=== PATIENT | male | born 1940 | race Caucasian/White ===

== ENCOUNTER 2024-05-05 15:23 | Inpatient (IN) | payer OTHER ==
[~2024-05-05] VITALS: Ht 165.1 cm; Wt 90.3 kg
[2024-05-05 15:30] VITALS: BP_SYST 117; PULSE 87; RESP 18; TEMP 100.3; O2SAT 98
[2024-05-05 16:30] LABS: BILIRUBIN,URINE NEGATIVE (NEGATIVE); CLARITY/URINE CLEAR (CLEAR); COLOR,URINE YELLOW (YELLOW); GLUCOSE,URINE NEGATIVE (NEGATIVE); KETONES,URINE NEGATIVE (NEGATIVE); LEUKOCYTE ESTERASE ,URINE 1+ (NEGATIVE); NITRITE, URINE NEGATIVE (NEGATIVE); PROTEIN URINE NEGATIVE (NEGATIVE); UROBILINOGEN,URINE 0.2 (0.2-1.0)
[2024-05-05 16:39] LABS: BLOOD, URINE TRACE (NEGATIVE)
[2024-05-05] MEDS: NACL 0.9% 1,000 ML IV ONE (16:49)
[2024-05-05 16:57] LABS: BACTERIA,URINE MANY /HPF (None Seen); RBC,URINE 0-3 /HPF (0-3)
[2024-05-05] MEDS: ACETAMINOPHEN 500 MG TABLET PO ONE (17:01)
[2024-05-05] MEDS: ACETAMINOPHEN 650 MG SUPP.RECT RC ONE (17:04)
[2024-05-05 17:05] LABS: ALANINE AMINOTRANSFERASE 15 U/L (12-78); ALBUMIN 3.1 g/dL (3.4-4.8); ANION GAP 8 (5-15); ASPARTATE AMINOTRANSFERASE 19 U/L (10-37); CARBON DIOXIDE 29 mmol/L (23-29); CHLORIDE 109 mmol/L (98-107); CREATININE 1.64 mg/dL (0.55-1.30); GLUCOSE 158 mg/dL (74-106); SODIUM SERUM 146 mmol/L (136-145); TOTAL BILIRUBIN 1.5 mg/dL (0.0-1.0); TOTAL PROTEIN, SERUM 7.4 g/dL (6.4-8.3); UREA NITROGEN, BLOOD 31 mg/dL (8-21)
[2024-05-05 17:07] LABS: BASOPHILS % (AUTO) 0.2 % (0.0-2.0); EOSINOPHILS % (AUTO) 0.1 % (0.0-4.0); HEMATOCRIT 40.8 % (36-54); HEMOGLOBIN 13.8 g/dL (14.0-18.0); LYMPHOCYTES # (AUTO) 1.4 K/uL (1.0-5.5); LYMPHOCYTES % (AUTO) 10.4 % (20.5-51.5); MEAN CORPUSCULAR HEMOGLOBIN 30 pg (27-31); MEAN CORPUSCULAR HGB CONC 34 % (32-36); MEAN CORPUSCULAR VOLUME 88 fL (79.0-98.0); MONOCYTES # (AUTO) 1.8 K/uL (0.0-1.0); NEUTROPHILS # (AUTO) 10.4 K/uL (1.8-7.7); NEUTROPHILS % (AUTO) 76.3 % (40.0-70.0); PLATELET COUNT (AUTO) 121 K/uL (130-430); RED BLOOD CELL COUNT(AUTO) 4.62 MIL/uL (4.2-6.2); RED CELL DISTRIBUTION WIDTH 16.4 % (9.0-15.0); WHITE BLOOD COUNT (AUTO) 13.6 K/uL (4.8-10.8)
[2024-05-05 17:08] LABS: BILIRUBIN,DIRECT 0.3 mg/dL (0.0-0.3)
[2024-05-05 17:09] LABS: INR 1.1 (0.80-1.20); PROTHROMBIN TIME 11.6 SECS (9.5-12.5)
[2024-05-05 18:04] LABS: INFLUENZA TYPE A Negative (NEGATIVE); INFLUENZA TYPE B NEGATIVE (NEGATIVE)
[2024-05-05] MEDS ORDERED: PIPERACILLIN/TAZOBACTAM 3.375 GM/VIAL (ZOSYN) IV ONE (18:09)
[2024-05-05] MEDS: KETOROLAC TROMETHAMINE 30 MG VIAL IVP ONE (18:15)
[2024-05-05] MEDS: LORazepam 2 MG/ML VIAL IVP ONE (18:17)
[2024-05-05] MEDS: PIPERACILLIN/TAZO 3.375 GM in NS 50 ML IV ONE (18:19)
[2024-05-05] MEDS: D5/0.45 NS 1,000 ML IV ONE (19:30)
[2024-05-05] MEDS ORDERED: DEXTROSE 50% JECT 50 ML DISP.SYRIN IVP PRN (19:30)
[2024-05-05] MEDS ORDERED: GABA-331 PO (21:04)
[2024-05-05] MEDS ORDERED: MEMA7CAP PO (21:04)
[2024-05-05] MEDS ORDERED: BISA-140 PO (21:04)
[2024-05-05] MEDS ORDERED: POTA-197 PO (21:04)
[2024-05-05] MEDS ORDERED: SPIR25TA6 PO (21:04)
[2024-05-05] MEDS ORDERED: APIX5TAB PO (21:04)
[2024-05-05] MEDS ORDERED: MELA10TA2 PO (21:04)
[2024-05-05] MEDS ORDERED: SOLI10TA2 PO (21:04)
[2024-05-05] MEDS ORDERED: DONE-49 PO (21:04)
[2024-05-05] MEDS ORDERED: DIVA250T PO (21:04)
[2024-05-05] MEDS ORDERED: QUET50TA24 PO (21:04)
[2024-05-05] MEDS ORDERED: TRAM50TA2 PO (21:04)
[2024-05-05] MEDS ORDERED: ACET-73 PO (21:04)
[2024-05-05 21:30] VITALS: BP_SYST 125; PULSE 66; RESP 20; TEMP 99.2; O2SAT 97
[2024-05-06] VITALS (8 sets, daily range): BP systolic 117–137; PULSE 60–75; RESP 18–20; TEMP 97.5–99.1; O2SAT 96–100
[2024-05-06] MEDS: TAMSULOSIN HCL 0.4 MG CAP PO SCH (00:15)
[2024-05-06] MEDS: PIPERACILLIN/TAZOBACTAM 2.25 GM VIAL IV ONE (00:28)
[2024-05-06] MEDS: PIPERACILLIN/TAZOBACTAM 2.25 GM in D5W 50 ML IV SCH (00:30)
[2024-05-06] MEDS: traMADol HCL HCL 50 MG TABLET (ULTRAM) PO PRN (02:41)
[2024-05-06] MEDS ORDERED: DONE5TAB33 PO (07:18)
[2024-05-06] MEDS ORDERED: MEMA10TA22 PO (07:18)
[2024-05-06] MEDS ORDERED: DIVA-72 PO (07:18)
[2024-05-06] MEDS ORDERED: BISA10SU61 RC (07:18)
[2024-05-06] MEDS ORDERED: BISACODYL 10 MG/SUPPOSITORY RC PRN (07:30)
[2024-05-06] MEDS: POTASSIUM CHLORIDE 20 MEQ TABLET.ER PO SCH (09:00)
[2024-05-06] MEDS: DIVALPROEX SODIUM 250 MG TABLET(DEPAKOTE) PO SCH (09:00)
[2024-05-06] MEDS: APIXABAN 2.5 MG TABLET PO SCH (09:00)
[2024-05-06] MEDS: oxyBUTYnin chloride 5 MG TABLET PO SCH (09:00)
[2024-05-06] MEDS: QUEtiapine FUMARATE 25 MG TABLET PO ONE (12:00)
[2024-05-06] MEDS: D5LR 1,000 ML IV SCH (13:59)
[2024-05-06] MEDS: DONEPEZIL HCL 5 MG TABLET (ARICEPT) PO SCH (19:11)
[2024-05-06] MEDS: MEMANTINE HCL 5 MG TABLET PO SCH (21:00)
[2024-05-06] MEDS: MELATONIN 5 MG TABLET PO SCH (23:05)
[2024-05-06] MEDS: QUEtiapine FUMARATE 25 MG TABLET PO SCH (23:06)
[2024-05-07 06:42] LABS: BASOPHILS # (AUTO) 0.1 K/uL (0.0-0.2); BASOPHILS % (AUTO) 0.6 % (0.0-2.0); EOSINOPHILS # (AUTO) 0.3 K/uL (0.0-0.4); EOSINOPHILS % (AUTO) 3.4 % (0.0-4.0); HEMATOCRIT 37.2 % (36-54); HEMOGLOBIN 12.3 g/dL (14.0-18.0); LYMPHOCYTES # (AUTO) 1.6 K/uL (1.0-5.5); LYMPHOCYTES % (AUTO) 16.4 % (20.5-51.5); MEAN CORPUSCULAR HEMOGLOBIN 30 pg (27-31); MEAN CORPUSCULAR HGB CONC 33 % (32-36); MEAN CORPUSCULAR VOLUME 89 fL (79.0-98.0); MONOCYTES # (AUTO) 0.8 K/uL (0.0-1.0); MONOCYTES % (AUTO) 7.8 % (1.7-9.3); NEUTROPHILS % (AUTO) 71.8 % (40.0-70.0); PLATELET COUNT (AUTO) 112 K/uL (130-430); RED BLOOD CELL COUNT(AUTO) 4.18 MIL/uL (4.2-6.2); WHITE BLOOD COUNT (AUTO) 9.8 K/uL (4.8-10.8)
[2024-05-07 06:47] LABS: ALANINE AMINOTRANSFERASE 16 U/L (12-78); ALBUMIN 2.7 g/dL (3.4-4.8); ANION GAP 2 (5-15); ASPARTATE AMINOTRANSFERASE 20 U/L (10-37); CALCIUM 9.5 mg/dL (8.4-11.0); CARBON DIOXIDE 34 mmol/L (23-29); CHLORIDE 112 mmol/L (98-107); CREATININE 1.18 mg/dL (0.55-1.30); GLUCOSE 125 mg/dL (74-106); PHOSPHORUS 2.6 mg/dL (2.7-4.5); POTASSIUM 3.4 mmol/L (3.5-5.1); SODIUM SERUM 148 mmol/L (136-145); TOTAL BILIRUBIN 0.8 mg/dL (0.0-1.0); TOTAL PROTEIN, SERUM 6.9 g/dL (6.4-8.3); UREA NITROGEN, BLOOD 23 mg/dL (8-21)
[2024-05-07 08:59] VITALS: O2SAT 97
[2024-05-07 09:05] VITALS: BP_SYST 117; PULSE 57; RESP 16; TEMP 99.1; O2SAT 96
[2024-05-07] MEDS: PIPERACILLIN/TAZOBACTAM 2.25 GM in D5W 50 ML IV ONE (12:29)
[2024-05-07 12:51] VITALS: BP_SYST 141; PULSE 58; RESP 15; TEMP 97.5; O2SAT 96
[2024-05-07] MEDS: POTASSIUM CHLORIDE 20 MEQ TABLET.ER PO ONE (14:43)
[2024-05-07 17:15] VITALS: BP_SYST 122; PULSE 87; RESP 17; TEMP 97.9; O2SAT 97
[2024-05-07] MEDS: PIPERACILLIN/TAZOBACTAM 2.25 GM in D5W 50 ML IV SCH (17:35)
[2024-05-07 20:00] VITALS: BP_SYST 137; PULSE 85; RESP 18; TEMP 98.3; O2SAT 96
[2024-05-07] MEDS: MEROPENEM 1 GM in NS 100 ML IV SCH (22:00)
[2024-05-07] MEDS: KCL 20 mEq in D5W 1000 mL 1,000 ML IV SCH (23:00)
[2024-05-07 23:59] VITALS: BP_SYST 158; PULSE 57; RESP 18; TEMP 97.5; O2SAT 95
[2024-05-08] MEDS: MEROPENEM 1 GM VIAL IV ONE (00:22)
[2024-05-08 07:03] LABS: BASOPHILS # (AUTO) 0.1 K/uL (0.0-0.2); BASOPHILS % (AUTO) 0.9 % (0.0-2.0); EOSINOPHILS # (AUTO) 0.4 K/uL (0.0-0.4); EOSINOPHILS % (AUTO) 6.2 % (0.0-4.0); HEMATOCRIT 38.9 % (36-54); HEMOGLOBIN 12.8 g/dL (14.0-18.0); LYMPHOCYTES # (AUTO) 1.7 K/uL (1.0-5.5); LYMPHOCYTES % (AUTO) 23.6 % (20.5-51.5); MEAN CORPUSCULAR HEMOGLOBIN 29 pg (27-31); MEAN CORPUSCULAR HGB CONC 33 % (32-36); MEAN CORPUSCULAR VOLUME 90 fL (79.0-98.0); MONOCYTES # (AUTO) 0.8 K/uL (0.0-1.0); MONOCYTES % (AUTO) 11.2 % (1.7-9.3); NEUTROPHILS # (AUTO) 4.1 K/uL (1.8-7.7); NEUTROPHILS % (AUTO) 58.1 % (40.0-70.0); PLATELET COUNT (AUTO) 137 K/uL (130-430); RED BLOOD CELL COUNT(AUTO) 4.35 MIL/uL (4.2-6.2); RED CELL DISTRIBUTION WIDTH 16.2 % (9.0-15.0); WHITE BLOOD COUNT (AUTO) 7.1 K/uL (4.8-10.8)
[2024-05-08 07:38] LABS: ALANINE AMINOTRANSFERASE 26 U/L (12-78); ALBUMIN 2.8 g/dL (3.4-4.8); ANION GAP 10 (5-15); ASPARTATE AMINOTRANSFERASE 23 U/L (10-37); CALCIUM 9.6 mg/dL (8.4-11.0); CARBON DIOXIDE 27 mmol/L (23-29); CHLORIDE 111 mmol/L (98-107); CREATININE 0.89 mg/dL (0.55-1.30); GLUCOSE 151 mg/dL (74-106); POTASSIUM 3.5 mmol/L (3.5-5.1); SODIUM SERUM 148 mmol/L (136-145); TOTAL BILIRUBIN 0.6 mg/dL (0.0-1.0); UREA NITROGEN, BLOOD 16 mg/dL (8-21)
[2024-05-08 08:00] VITALS: O2SAT 98
[2024-05-08 08:30] VITALS: BP_SYST 149; PULSE 68; RESP 16; TEMP 97.6; O2SAT 98
[2024-05-08 09:22] VITALS: BP_SYST 165; PULSE 63; RESP 16; TEMP 97.3
[2024-05-08 10:29] VITALS: BP_SYST 163; PULSE 62; RESP 16; TEMP 98.3; O2SAT 98
[2024-05-08] MEDS: KCL 20 mEq in D5W 1000 mL 1,000 ML IV SCH (10:40)
[2024-05-08] MEDS ORDERED: KCL 20 mEq in D5W 1000 mL 1,000 ML IV SCH (12:00)
[2024-05-08] MEDS: MEGESTROL ACETATE 400 MG/10 ML UDC PO ONE (14:28)
[2024-05-08] MEDS: cloNIDine HCL 0.1 MG TABLET PO PRN (14:33)
[2024-05-08 16:28] VITALS: BP_SYST 157; PULSE 101; RESP 14; TEMP 98.2; O2SAT 95
[2024-05-08] MEDS: INSULIN REGULAR, HUMAN 100 UNITS/ML, 3 ML VIAL (humuLIN R) SUBCUT PRN (17:04)
[2024-05-08 20:05] VITALS: BP_SYST 144; PULSE 48; RESP 16; TEMP 97.5; O2SAT 97
[2024-05-09] VITALS: BP_SYST 139; PULSE 50; RESP 16; TEMP 97.5; O2SAT 98
[2024-05-09 08:11] VITALS: O2SAT 98
[2024-05-09 08:21] VITALS: BP_SYST 154; PULSE 50; RESP 16; TEMP 97.8; O2SAT 98
[2024-05-09] MEDS: MEGESTROL ACETATE 400 MG/10 ML UDC PO SCH (08:38)
[2024-05-09 12:56] VITALS: BP_SYST 154; PULSE 53; RESP 18; TEMP 98.2; O2SAT 99
[2024-05-09] MEDS ORDERED: TAMS0.4C96 PO (14:07)
[2024-05-09 16:20] VITALS: BP_SYST 144; PULSE 54; RESP 16; TEMP 97.3; O2SAT 96
[2024-05-09 20:35] VITALS: BP_SYST 135; PULSE 58; RESP 17; TEMP 97.9; O2SAT 97
[2024-05-10] MEDS: ACETAMINOPHEN 500 MG TABLET PO PRN (03:33)
[2024-05-10 07:26] LABS: BASOPHILS % (AUTO) 0.6 % (0.0-2.0); EOSINOPHILS # (AUTO) 0.4 K/uL (0.0-0.4); EOSINOPHILS % (AUTO) 6.8 % (0.0-4.0); HEMATOCRIT 37.6 % (36-54); HEMOGLOBIN 12.5 g/dL (14.0-18.0); LYMPHOCYTES % (AUTO) 31.5 % (20.5-51.5); MEAN CORPUSCULAR HEMOGLOBIN 29 pg (27-31); MEAN CORPUSCULAR HGB CONC 33 % (32-36); MEAN CORPUSCULAR VOLUME 87 fL (79.0-98.0); MONOCYTES # (AUTO) 0.6 K/uL (0.0-1.0); MONOCYTES % (AUTO) 9.7 % (1.7-9.3); NEUTROPHILS # (AUTO) 3.3 K/uL (1.8-7.7); NEUTROPHILS % (AUTO) 51.4 % (40.0-70.0); PLATELET COUNT (AUTO) 151 K/uL (130-430); RED CELL DISTRIBUTION WIDTH 15.8 % (9.0-15.0); WHITE BLOOD COUNT (AUTO) 6.4 K/uL (4.8-10.8)
[2024-05-10 07:38] LABS: ANION GAP 5 (5-15); CALCIUM 9.6 mg/dL (8.4-11.0); CARBON DIOXIDE 26 mmol/L (23-29); CHLORIDE 105 mmol/L (98-107); CREATININE 0.85 mg/dL (0.55-1.30); GLUCOSE 146 mg/dL (74-106); POTASSIUM 4.1 mmol/L (3.5-5.1); SODIUM SERUM 136 mmol/L (136-145); UREA NITROGEN, BLOOD 12 mg/dL (8-21)
[2024-05-10 07:59] VITALS: BP_SYST 127; PULSE 57; RESP 18; TEMP 97.1; O2SAT 98
[2024-05-10 09:42] VITALS: O2SAT 98
[2024-05-10 12:10] VITALS: BP_SYST 142; PULSE 65; RESP 16; TEMP 97.1; O2SAT 100
[2024-05-10 16:10] VITALS: BP_SYST 120; PULSE 91; RESP 13; TEMP 97.1; O2SAT 97
[2024-05-10 20:00] VITALS: BP_SYST 120; PULSE 79; RESP 20; TEMP 97.9; O2SAT 98
[2024-05-11] VITALS: BP_SYST 113; PULSE 77; RESP 18; TEMP 98; O2SAT 98
[2024-05-11 07:45] VITALS: BP_SYST 131; PULSE 63; RESP 17; TEMP 98.2; O2SAT 99
[2024-05-11 10:15] VITALS: O2SAT 99
[2024-05-11 13:47] VITALS: BP_SYST 116; PULSE 76; RESP 18; TEMP 97.7; O2SAT 94
[2024-05-11] MEDS: CEFEPIME 2 GM in D5W 100 ML IV SCH (14:06)
[2024-05-11 16:00] VITALS: BP_SYST 121; PULSE 66; RESP 18; TEMP 98.6; O2SAT 98
[2024-05-11] MEDS: QUEtiapine FUMARATE 25 MG TABLET PO SCH (17:53)
[2024-05-11 20:00] VITALS: BP_SYST 136; PULSE 67; RESP 16; TEMP 96.9; O2SAT 98
[2024-05-12 01:38] VITALS: BP_SYST 133; PULSE 74; RESP 17; TEMP 96.5; O2SAT 98
[2024-05-12 08:25] VITALS: BP_SYST 125; PULSE 70; RESP 18; TEMP 97.8; O2SAT 97; O2SAT 98
[2024-05-12 12:48] VITALS: BP_SYST 132; PULSE 73; RESP 18; TEMP 97.6; O2SAT 98
[2024-05-12 16:57] VITALS: BP_SYST 130; PULSE 69; RESP 18; TEMP 97.9; O2SAT 98
[2024-05-12 20:00] VITALS: BP_SYST 148; PULSE 58; RESP 18; TEMP 97; O2SAT 97
[2024-05-13 01:10] VITALS: BP_SYST 127; PULSE 64; RESP 17; TEMP 97.7; O2SAT 100
[2024-05-13 08:30] VITALS: O2SAT 97
[2024-05-13 09:30] VITALS: BP_SYST 149; PULSE 70; RESP 18; TEMP 98.1; O2SAT 98
[2024-05-13 12:04] VITALS: BP_SYST 132; PULSE 101; RESP 16; TEMP 98.6; O2SAT 96
[2024-05-13 14:35] VITALS: BP_SYST 132; PULSE 80; RESP 17; TEMP 98.6; O2SAT 96
== END 2024-05-13 15:15 | DRG 682 ==
LOC: SED 15:23 → STU 19:21 → SMU 05-10 11:35
PROVIDERS: ADMIT Internal Medicine; ATTEND Internal Medicine
PROC: 05HY33Z Insertion of Infusion Device into Upper Vein, Percutaneous Approach (ICD-10-PCS; principal; 2024-05-11)
PROC: B54MZZA Ultrasonography of Right Upper Extremity Veins, Guidance (ICD-10-PCS; 2024-05-11)
DX: N17.0 Acute kidney failure with tubular necrosis (principal); G93.41 Metabolic encephalopathy; N39.0 Urinary tract infection, site not specified; E87.0 Hyperosmolality and hypernatremia; I82.432 Acute embolism and thrombosis of left popliteal vein; Z20.822 Contact with and (suspected) exposure to COVID-19; E86.0 Dehydration; F03.90 Unspecified dementia, unspecified severity, without behavioral disturbance, psychotic disturbance, mood disturbance, and anxiety; G62.9 Polyneuropathy, unspecified; G89.4 Chronic pain syndrome; E11.22 Type 2 diabetes mellitus with diabetic chronic kidney disease; I12.9 Hypertensive chronic kidney disease with stage 1 through stage 4 chronic kidney disease, or unspecified chronic kidney disease; N18.9 Chronic kidney disease, unspecified; Z79.01 Long term (current) use of anticoagulants
CPT/HCPCS: 36415; 70450-TC; 71045; 80048; 80053; 80076; 81000; 81001; 81015; 82948; 83605; 83880; 84100; 84484; 85025; 85610; 85730; 87040; 87081; 87086; 87186; 92610-GN; 93005; 93306; 93970; 97110-GP; 97112-GP; 97530-GP; 99285; C1751; G0378; J0692; J1815; J1885; J2060; J2185; J2543; J3480; J7060; J7120